=== PATIENT | male | born 1990 | race Caucasian/White ===

== ENCOUNTER 2018-11-04 10:37 | Emergency (ER) | payer OTHER ==
[2018-11-04 12:11] VITALS: BP 126/74; PULSE 105; TEMP 98; BMI 27.3
--- NOTE | 2018-11-04 13:22 | PDOC ---
History of Present Illness - General Chief Complaint: Substance Abuse Stated Complaint: HEADACHES Time Seen by Provider: 11/04/18 12:38 Past History - Past Medical History Allergies/Adverse Reactions: Allergies Allergy/AdvReac Type Severity Reaction Status Date / Time No Known Allergies Allergy Verified 11/04/18 12:12 Home Medications: Ambulatory Orders No Home Medications 0 dose .ROUTE UTDICT 05/30/13 Metoclopramide HCl [Reglan] 10 mg GT Q8H #12 tablet 08/07/15 Anemia: No Asthma: No Cancer: No Cardiac Disorders: No CVA: No COPD: No CHF: No Dementia: No Diabetes: No GI Disorders: No Disorders: No HTN: No Hypercholesterolemia: No Liver Disease: No Seizures: No Thyroid Disease: No - Surgical History Abdominal Surgery: No Appendectomy: No Cardiac Surgery: No Cholecystectomy: No Lung Surgery: No Neurologic Surgery: No Orthopedic Surgery: Yes (RIGHT KNEE FRACTURE 09/2006, ORIF,FOLLOWED BY REMOVAL OF HARDWARE, FOLLOWED) - Immunization History Immunization Up to Date: No - Suicide/Smoking/Psychosocial Hx Smoking History: Never smoked Have you smoked in the past 12 months: No Information on smoking cessation initiated: No Hx Alcohol Use: No Drug/Substance Use Hx: No Substance Use Type: Alcohol Hx Substance Use Treatment: No *Physical Exam - Vital Signs Last Vital Signs Temp Pulse Resp BP Pulse Ox 98.0 F 105 H 18 126/74 96 11/04/18 12:06 11/04/18 12:06 11/04/18 12:06 11/04/18 12:06 11/04/18 12:06 Medical Decision Making - Medical Decision Making 11/04/18 13:22 patient not in room or waiting area. left food in the fast track. patient was not evaluated byt his provider 11/04/18 14:17 patient left the waiting area many times . patient at this left point eloped prior to my evaluation *DC/Admit/Observation/Transfer Diagnosis at time of Disposition: Substance abuse - Referrals - Patient Instructions - Post Discharge Activity
== END 2018-11-04 14:25 | disposition left against medical advice (07) ==
LOC: JERFT 10:37
DX: Z53.21 Procedure and treatment not carried out due to patient leaving prior to being seen by health care provider (principal)
CPT/HCPCS: 99281-25

== ENCOUNTER 2018-11-08 17:00 | Inpatient (IN) | payer OTHER ==
[2018-11-08 20:05] VITALS: BMI 30.7
--- NOTE | 2018-11-08 21:56 | HP ---
COWS - Scale Resting Pulse: 0= [place] 80 or Below Sweatin= No chills or Flushing Restless Observation: 5= Unable to Sit Still Pupil Size: 0= Normal to Room Light Bone or Joint Aches: 4=Acute Joint/Muscle Pain Runny Nose/ Eye Tearin= Nasal Congestion GI Upset > 30mins: 0= None Tremor Observation: 0= None Yawning Observation: 1= 1-2x During Session Anxiety or Irritability: 2=Irritable/Anxious Goose Flesh Skin: 0=Smooth Skin COWS Score: 13 CIWA Score - Admission Criteria [facility] Guidelines: Admission for Medically Managed Detox: Requires at least one of the followin. CIWA greater than 12 2. Seizures within the past 24 hours 3. Delirium tremens within the past 24 hours 4. Hallucinations within the past 24 hours 5. Acute intervention needed for co occurring medical disorder 6. Acute intervention needed for co occurring psychiatric disorder 7. Severe withdrawal that cannot be handled at a lower level of care (continued vomiting, continued diarrhea, abnormal vital signs) requiring intravenous medication and/or fluids 8. Admission ROS [facility] Chief Complaint: C/O WORSENING WITHDRAWAL SX'S Allergies/Adverse Reactions: Allergies Allergy/AdvReac Type Severity Reaction Status Date / Time No Known Allergies Allergy Verified 11/08/18 19:52 History of Present Illness: 28 Y.O. MALE WITH HX/O HEROIN AND COCAINE DEPENDENCE HERE FOR DETOX. CLIENT IS SELF REFERRED THIS IS HIS FIRST ADMISSION HERE. PRESENTS WITH C/O WORSENING WITHDRAWAL SX'S. COWS 13. LAST DETOX 1 MONTH. REPORTS RELAPSING SOON AFTER DC. HE IS AN IVDU. C/O WOUNDS TO BOTH FEET INVOLVING SKIN BREAK FROM SCRATCHING. REPORTS LONGEST CLEAN TIME 2.5 YEARS. DENIES HX/O OVERDOSE,SEIZURE D/O. DOMILCILED, EMPLOYED, DENIES LEGALS - Ebola screening Have you traveled outside of the country in the last 21 days: No (N) Have you had contact with anyone from an Ebola affected area: No Do you have a fever: No - Review of Systems Constitutional: Chills, Night Sweats, Changes in sleep EENT: reports: Nose Congestion Respiratory: reports: No Symptoms reported Cardiac: reports: No Symptoms Reported GI: reports: No Symptoms Reported : reports: No Symptoms Reported Musculoskeletal: reports: Joint Pain Integumentary: reports: Erythema (TO BLE R>L) Neuro: reports: No Symptoms reported Endocrine: reports: No Symptoms Reported Hematology: reports: No Symptoms Reported Psychiatric: reports: Orientated x3, Anxious Other Systems: Reviewed and Negative Patient History - Patient Medical History Hx Anemia: No Hx Asthma: No Hx Chronic Obstructive Pulmonary Disease (COPD): No Hx Cancer: No Hx Cardiac Disorders: No Hx Congestive Heart Failure: No Hx Hypertension: No Hx Hypercholesterolemia: No Hx Pacemaker: No HX Cerebrovascular Accident: No Hx Seizures: No Hx Dementia: No Hx Diabetes: No Hx Gastrointestinal Disorders: No Hx Liver Disease: No Hx Genitourinary Disorders: No Hx Renal Disease (ESRD): No Hx Thyroid Disease: No Hx Human Immunodeficiency Virus (HIV): No Hx Hepatitis C: No Hx Depression: No Hx Suicide Attempt: No Hx Bipolar Disorder: No Hx Schizophrenia: No - Patient Surgical History Past Surgical History: Yes Hx Neurologic Surgery: No Hx Cataract Extraction: No Hx Cardiac Surgery: No Hx Lung Surgery: No Hx Breast Surgery: No Hx Breast Biopsy: No Hx Abdominal Surgery: No Hx Appendectomy: No Hx Cholecystectomy: No Hx Genitourinary Surgery: No Hx Section: No Hx Orthopedic Surgery: Yes (RIGHT KNEE FRACTURE 09/2006, ORIF,FOLLOWED BY REMOVAL OF HARDWARE, FOLLOWED) Hx Hysterectomy: No Other Surgical History: WITH HALO PINNING,TOTAL OF SEVEN SURGERIES Anesthesia Reaction: No - PPD History Previous Implant?: Yes Documented Results: Negative w/o proof Implanted On Prior [facility] Admission?: No PPD to be Administered?: Yes - Smoking Cessation Smoking history: Never smoked Have you smoked in the past 12 months: No Hx Chewing Tobacco Use: No Initiated information on smoking cessation: No - Substance & Tx. History Hx Alcohol Use: No Hx Substance Use: Yes Substance Use Type: Cocaine, Heroin Hx Substance Use Treatment: Yes ([facility]) - Substances abused Heroin Substance route: Injection Frequency: Daily Amount used: 6-10 BAGS Age of first use: 28 Date of last use: 11/08/18 Other Other (specify): PERCOCET Substance route: Oral Frequency: 1-3 times last 30 days Amount used: 3/30MG Age of first use: 16 Date of last use: 11/01/18 Family Disease History - Family Disease History Family History: Denies Admission Physical Exam BHS - Vital Signs Vital Signs: Vital Signs - 24 hr 11/08/18 19:56 Temperature 98.2 F Pulse Rate 78 Respiratory 18 Rate Blood Pressure 128/71 - Physical General Appearance: Yes: Irritable, Anxious HEENTM: Yes: EOMI, Normocephalic, Normal Voice, VEL, Pharynx Normal, Nasal Congestion Respiratory: Yes: Chest Non-Tender, Lungs Clear, Normal Breath Sounds, No Respiratory Distress, No Accessory Muscle Use Neck: Yes: No masses,lesions,Nodules, Supple, Trachea in good position Breast: Yes: Breast Exam Deferred Cardiology: Yes: Regular Rhythm, S1, S2, Tachycardia Abdominal: Yes: Normal Bowel Sounds, Non Tender, Soft Genitourinary: Yes: Within Normal Limits (NO C/O) Back: Yes: Normal Inspection Musculoskeletal: Yes: full range of Motion, Gait Steady Extremities: Yes: Non-Tender, Pedal Edema (RLE), Other (TRACK LANIER) Neurological: Yes: Fully Oriented, Alert, Motor Strength 5/5 Integumentary: Yes: Dry, Warm, Erythema (RLE WOUND WITH HOT TO TOUCH W/ BLACHABLE REDNESS AND PITTING EDEMA. NEGATIVE HOMENS SIGN WILL TREAT FOR CELLULITIS) Lymphatic: Yes: Within Normal Limits - Diagnostic (1) Opioid dependence with withdrawal Current Visit: Yes Status: Acute (2) Cocaine dependence, uncomplicated Current Visit: Yes Status: Acute (3) IVDU (intravenous drug user) Current Visit: Yes Status: Acute (4) Cellulitis Current Visit: Yes Status: Acute Qualifiers: Site of cellulitis: extremity Site of cellulitis of extremity: lower extremity Laterality: right Qualified Code(s): L03.115 - Cellulitis of right lower limb (5) Excoriation (skin-picking) disorder Current Visit: Yes Status: Acute Cleared for Admission [facility] - Detox or Rehab [facility] Level of Care: Medically Managed Detox Regimen/Protocol: Methadone Claeared for Rehab Admission: No Breathalyzer - Breathalyzer Breathalyzer: 0 Urine Drug Screen - Test Device Lot number: [id number] Expiration date: 07/15/20 - Control Is test valid?: Yes - Results Drug screen NEGATIVE: No Urine drug screen results: JEWELL-Cocaine, FEN-Fentanyl, MOP-Opiates Inpatient Rehab Admission - Rehab Decision to Admit Inpatient rehab admission?: No
[2018-11-08] MEDS ORDERED: hydrOXYzine PAMOATE 25 MG CAPSULE (FP) PO PRN (22:04)
[2018-11-08] MEDS ORDERED: ACETAMINOPHEN 325 MG TABLET (FP) PO PRN ×2 (22:04)
[2018-11-08] MEDS ORDERED: ONDANSETRON *ODT* 4 MG TABLET SL PRN (22:04)
[2018-11-08] MEDS ORDERED: METHOCARBAMOL 500 MG TABLET PO PRN (22:04)
[2018-11-08] MEDS ORDERED: cloNIDine HCL 0.1 MG TABLET PO PRN (22:04)
[2018-11-08] MEDS ORDERED: guaiFENesin 200 MG/10 ML 10 ML UNIT-DOSE CUPS PO PRN (22:04)
[2018-11-08] MEDS ORDERED: MAG HYDROX/AL HYDROX/SIMETH 30 ML UNIT-DOSE CUP PO PRN (22:04)
[2018-11-08] MEDS ORDERED: DICYCLOMINE HCL 10 MG CAPSULE PO PRN (22:04)
[2018-11-08] MEDS ORDERED: BISMUTH SUBSALICYLATE 524 MG/30 ML UD PO PRN (22:04)
[2018-11-08] MEDS ORDERED: P-EPHED 60MG/TRIPROLIDI 2.5MG TABLET PO PRN (22:04)
[2018-11-08] MEDS ORDERED: NALOXONE HCL 0.4 MG/ML VIAL IVPUSH PRN (22:04)
[2018-11-08] MEDS ORDERED: MENTHOL/PHENOL 1 EACH UD MM PRN (22:04)
[2018-11-08] MEDS ORDERED: MAGNESIUM HYDROX 2400MG/30ML ORAL SUSPENSION 30 ML CUP PO PRN (22:04)
[2018-11-08] MEDS ORDERED: MAGNESIUM CITRATE 300 ML BOTTLE PO PRN (22:04)
[2018-11-08] MEDS ORDERED: METHADONE HCL 10 MG TABLET (FOR DETOX USE ONLY) PO ONE (23:00)
[2018-11-09] MEDS: CEPHALEXIN MONOHYDRATE 500 MG CAPSULE (UD) PO SCH ×5 (00:05→23:09)
[2018-11-09] MEDS ORDERED: HYDROCORTISONE 1% TOPICAL CREAM 30 GM TUBE TP PRN (04:13)
[2018-11-09] MEDS: hydrOXYzine PAMOATE 25 MG CAPSULE (FP) PO PRN ×2 (06:28→22:40)
--- NOTE | 2018-11-09 09:15 | PN ---
BHS CIWA - CIWA Score Nausea/Vomitin Muscle Tremors: 2 Anxiety: 2 Agitation: 2 Paroxysmal Sweats: 1-Minimal Palms Moist Orientation: 0-Oriented Tacttile Disturbances: 1-Very Mild Itch/Numbness Auditory Disturbances: 1-Very Mild Visual Disturbances: 0-None Headache: 2-Mild CIWA-Ar Total Score: 13 BHS Progress Note (SOAP) Subjective: alert,irritable,anxious,interrupted sleep,tremor,interrupted sleep Objective: 11/09/18 09:14 Vital Signs Temperature 97.3 F L 11/09/18 06:00 Pulse Rate 63 11/09/18 06:00 Respiratory Rate 18 11/09/18 06:00 Blood Pressure 123/62 11/09/18 06:00 O2 Sat by Pulse Oximetry (%) Assessment: 11/09/18 09:14 withdrawal symptom Plan: continue detox
[2018-11-09] MEDS ORDERED: METHADONE HCL 10 MG TABLET (FOR DETOX USE ONLY) PO ONE (10:00)
[2018-11-09 10:02] LABS: HEMOGLOBIN 12.7 GM/dL (11.7-16.9); MCH 32.2 pg (25.7-33.7); MCHC 34.4 g/dl (32.0-35.9); MEAN CELL VOLUME 93.5 fl (80-96); MEAN PLT VOLUME 8.2 fl (7.5-11.1); RBC 3.96 M/mm3 (4.00-5.60); RDW 13.6 % (11.9-15.9); WHITE BLOOD COUNT 4.2 K/mm3 (4.0-10.0)
[2018-11-09 10:30] LABS: BILIRUBIN,TOTAL 0.4 mg/dL (0.2-1); BLOOD UREA NITROGEN 14.3 mg/dL (7-18); CALCIUM 8.3 mg/dL (8.5-10.1); TOT PROT 5.9 g/dl (6.4-8.2)
[2018-11-09 10:33] LABS: PLATELET COUNT 193 K/MM3 (134-434)
--- NOTE | 2018-11-09 10:33 | EKG ---
Test Reason : Blood Pressure : / mmHG Vent. Rate : 073 BPM Atrial Rate : 073 BPM P-R Int : 148 ms QRS Dur : 098 ms QT Int : 384 ms P-R-T Axes : 048 072 042 degrees QTc Int : 423 ms NORMAL SINUS RHYTHM NORMAL ECG WHEN COMPARED WITH ECG OF 27-FEB-2011 01:33, NO SIGNIFICANT CHANGE WAS FOUND Confirmed by Aditya Glover MD ([id number]) on 11/09/2018 10:33:03 AM Referred By: Confirmed By:Aditya Glover MD
[2018-11-09] MEDS: BACITRACIN 0.9 GM PACKET TP SCH (10:58)
[2018-11-09] MEDS: PRENATAL VITAMINS W/ FOLIC ACID TABLET (FP) PO SCH (10:58)
[2018-11-09 17:06] LABS: PH,URINE 6.5 (5.0-8.0); URINE APPEARANCE CLEAR; URINE BILIRUBIN NEGATIVE (NEGATIVE); URINE COLOR YELLOW; URINE GLUCOSE (UA) NEGATIVE (NEGATIVE); URINE KETONE NEGATIVE (NEGATIVE); URINE LEUK ESTERASE NEGATIVE (NEGATIVE); URINE NITRITE NEGATIVE (NEGATIVE); URINE PROTEIN NEGATIVE (NEGATIVE); URINE UROBILINOGEN 0.2 mg/dL (0.2-1.0)
[2018-11-09] MEDS: THIAMINE HCL 100 MG TABLET (FP) PO SCH (22:37)
[2018-11-09] MEDS: MELATONIN 5 MG TABLETS PO PRN (22:38)
[2018-11-10] MEDS: CEPHALEXIN MONOHYDRATE 500 MG CAPSULE (UD) PO SCH ×4 (06:52→23:02)
[2018-11-10] MEDS ORDERED: METHADONE HCL 10 MG TABLET (FOR DETOX USE ONLY) PO ONE (10:00)
--- NOTE | 2018-11-10 11:13 | PN ---
BHS Progress Note (SOAP) Subjective: pt states his feet are getting better on antibiotics, had infection secondary to scratching feet. O: Vital Signs - 24 hr 11/09/18 11/09/18 11/09/18 14:02 16:36 20:40 Temperature 97.1 F L 97.9 F 98.8 F Pulse Rate 78 66 75 Respiratory 18 18 18 Rate Blood Pressure 110/66 127/68 126/81 11/10/18 11/10/18 11/10/18 03:30 06:58 10:00 Temperature 97.9 F 98.6 F Pulse Rate 67 71 Respiratory 18 18 18 Rate Blood Pressure 133/76 133/78 Laboratory Tests 11/08/18 11/09/18 11/09/18 16:51 07:00 07:00 WBC 4.2 RBC 3.96 L Hgb 12.7 Hct 37.0 MCV 93.5 MCH 32.2 MCHC 34.4 RDW 13.6 Plt Count 193 MPV 8.2 Sodium 140 Potassium 4.0 Chloride 105 Carbon Dioxide 30 Anion Gap 5 L BUN 14.3 Creatinine 1.0 Est GFR (CKD-EPI)AfAm 119.02 Est GFR (CKD-EPI)NonAf 102.69 Random Glucose 97 Calcium 8.3 L Total Bilirubin 0.4 AST 130 H ALT 103 H Alkaline Phosphatase 59 Total Protein 5.9 L Albumin 3.0 L Urine Color Yellow Urine Appearance Clear Urine pH 6.5 Ur Specific [place] 1.024 Urine Protein Negative Urine Glucose (UA) Negative Urine Ketones Negative Urine Blood Negative Urine Nitrite Negative Urine Bilirubin Negative Urine Urobilinogen 0.2 Ur Leukocyte Esterase Negative RPR Titer 11/09/18 07:00 WBC RBC Hgb Hct MCV MCH MCHC RDW Plt Count MPV Sodium Potassium Chloride Carbon Dioxide Anion Gap BUN Creatinine Est GFR (CKD-EPI)AfAm Est GFR (CKD-EPI)NonAf Random Glucose Calcium Total Bilirubin AST ALT Alkaline Phosphatase Total Protein Albumin Urine Color Urine Appearance Urine pH Ur Specific [place] Urine Protein Urine Glucose (UA) Urine Ketones Urine Blood Urine Nitrite Urine Bilirubin Urine Urobilinogen Ur Leukocyte Esterase RPR Titer Nonreactive increased liver enzymes decreased albumin/T pro a/p: opioid use disorder-continue methadone detox, f/u PCP, \ cellulitis improving on Abx and rest
[2018-11-10] MEDS: PRENATAL VITAMINS W/ FOLIC ACID TABLET (FP) PO SCH (12:26)
[2018-11-10] MEDS: BACITRACIN 0.9 GM PACKET TP SCH (12:26)
[2018-11-10] MEDS: MELATONIN 5 MG TABLETS PO PRN (22:08)
[2018-11-10] MEDS: THIAMINE HCL 100 MG TABLET (FP) PO SCH (22:08)
[2018-11-10] MEDS: hydrOXYzine PAMOATE 25 MG CAPSULE (FP) PO PRN (22:08)
[2018-11-10] MEDS: IBUPROFEN 400 MG TABLET (FP) PO PRN (23:01)
[2018-11-11] MEDS: CEPHALEXIN MONOHYDRATE 500 MG CAPSULE (UD) PO SCH ×4 (06:25→23:44)
--- NOTE | 2018-11-11 09:54 | PN ---
BHS COWS - Scale Resting Pulse: 0= [place] 80 or Below Sweatin= Chills/Flushing Restless Observation: 1= Difficult to Sit Still Pupil Size: 1= Pupils >than Normal Bone or Joint Aches: 2= Severe Diffuse Aches Runny Nose/ Eye Tearin= Nasal Congestion GI Upset > 30mins: 1= Stomach Cramp Tremor Observation of Outstretched Hands: 2= Slight Tremor Visible Yawning Observation: 1= 1-2x During Session Anxiety or Irritability: 1=Feels Anxious/Irritable Goose Flesh Skin: 0=Smooth Skin COWS Score: 11 BHS Progress Note (SOAP) Subjective: alert,irritable,anxious,interrupted sleep,pain in the body and back Objective: 11/11/18 09:53 Vital Signs Temperature 98.1 F 11/11/18 09:08 Pulse Rate 61 11/11/18 09:08 Respiratory Rate 18 11/11/18 09:08 Blood Pressure 124/63 11/11/18 09:08 O2 Sat by Pulse Oximetry (%) Assessment: 11/11/18 09:53 withdrawal symptom Plan: continue detox
[2018-11-11] MEDS ORDERED: METHADONE HCL 10 MG TABLET (FOR DETOX USE ONLY) PO ONE (10:00)
[2018-11-11] MEDS: BACITRACIN 0.9 GM PACKET TP SCH ×2 (11:00→11:28)
[2018-11-11] MEDS: PRENATAL VITAMINS W/ FOLIC ACID TABLET (FP) PO SCH (11:27)
[2018-11-11] MEDS: THIAMINE HCL 100 MG TABLET (FP) PO SCH (22:08)
[2018-11-11] MEDS: MELATONIN 5 MG TABLETS PO PRN (23:42)
[2018-11-11] MEDS: hydrOXYzine PAMOATE 25 MG CAPSULE (FP) PO PRN (23:47)
[2018-11-11] MEDS: IBUPROFEN 400 MG TABLET (FP) PO PRN (23:47)
[2018-11-12] MEDS ORDERED: METHADONE HCL 5 MG TABLET (FOR DETOX USE ONLY) PO ONE (06:00)
[2018-11-12] MEDS: CEPHALEXIN MONOHYDRATE 500 MG CAPSULE (UD) PO SCH (07:47)
--- NOTE | 2018-11-12 08:30 | DS ---
[facility] Detox Discharge Summary Admission Date: 11/08/18 Discharge Date: 11/12/18 - History Present History: Cocaine Dependence, Opioid Dependence Additional Comments: Vital Signs Temperature 99.0 F 11/12/18 09:11 Pulse Rate 91 H 11/12/18 09:11 Respiratory Rate 18 11/12/18 09:11 Blood Pressure 149/90 11/12/18 09:11 O2 Sat by Pulse Oximetry (%) Laboratory Last Values WBC 4.2 K/mm3 (4.0-10.0) 11/09/18 07:00 RBC 3.96 M/mm3 (4.00-5.60) L 11/09/18 07:00 Hgb 12.7 GM/dL (11.7-16.9) 11/09/18 07:00 Hct 37.0 % (35.4-49) 11/09/18 07:00 MCV 93.5 fl (80-96) 11/09/18 07:00 MCH 32.2 pg (25.7-33.7) 11/09/18 07:00 MCHC 34.4 g/dl (32.0-35.9) 11/09/18 07:00 RDW 13.6 % (11.9-15.9) 11/09/18 07:00 Plt Count 193 K/MM3 (134-434) 11/09/18 07:00 MPV 8.2 fl (7.5-11.1) 11/09/18 07:00 Sodium 140 mmol/L (136-145) 11/09/18 07:00 Potassium 4.0 mmol/L (3.5-5.1) 11/09/18 07:00 Chloride 105 mmol/L (98-107) 11/09/18 07:00 Carbon Dioxide 30 mmol/L (21-32) 11/09/18 07:00 Anion Gap 5 MMOL/L (8-16) L 11/09/18 07:00 BUN 14.3 mg/dL (7-18) 11/09/18 07:00 Creatinine 1.0 mg/dL (0.55-1.3) 11/09/18 07:00 Est GFR (CKD-EPI)AfAm 119.02 11/09/18 07:00 Est GFR (CKD-EPI)NonAf 102.69 11/09/18 07:00 Random Glucose 97 mg/dL (74-106) 11/09/18 07:00 Calcium 8.3 mg/dL (8.5-10.1) L 11/09/18 07:00 Total Bilirubin 0.4 mg/dL (0.2-1) 11/09/18 07:00 AST 130 U/L (15-37) H 11/09/18 07:00 ALT 103 U/L (13-61) H 11/09/18 07:00 Alkaline Phosphatase 59 U/L (45-117) 11/09/18 07:00 Total Protein 5.9 g/dl (6.4-8.2) L 11/09/18 07:00 Albumin 3.0 g/dl (3.4-5.0) L 11/09/18 07:00 Urine Color Yellow 11/08/18 16:51 Urine Appearance Clear 11/08/18 16:51 Urine pH 6.5 (5.0-8.0) 11/08/18 16:51 Ur Specific [place] 1.024 (1.010-1.035) 11/08/18 16:51 Urine Protein Negative (NEGATIVE) 11/08/18 16:51 Urine Glucose (UA) Negative (NEGATIVE) 11/08/18 16:51 Urine Ketones Negative (NEGATIVE) 11/08/18 16:51 Urine Blood Negative (NEGATIVE) 11/08/18 16:51 Urine Nitrite Negative (NEGATIVE) 11/08/18 16:51 Urine Bilirubin Negative (NEGATIVE) 11/08/18 16:51 Urine Urobilinogen 0.2 mg/dL (0.2-1.0) 11/08/18 16:51 Ur Leukocyte Esterase Negative (NEGATIVE) 11/08/18 16:51 RPR Titer Nonreactive (NONREACTIVE) 11/09/18 07:00 - Physical Exam Results Vital Signs: Vital Signs Temperature 97.5 F L 11/12/18 06:20 Pulse Rate 56 L 11/12/18 06:20 Respiratory Rate 16 11/12/18 06:20 Blood Pressure 131/69 11/12/18 06:20 O2 Sat by Pulse Oximetry (%) - Treatment Hospital Course: Detox Protocol Followed, Detoxed Safely, Responded well, Discharged Condition Good, Rehab Referral Accepted Patient has Accepted a Rehab Referral to: Follow up at [facility] - Medication Discharge Medications: Ambulatory Orders NK [No Known Home Medication] 11/08/18 - Diagnosis (1) Cocaine dependence, uncomplicated Current Visit: Yes Status: Acute (2) IVDU (intravenous drug user) Current Visit: Yes Status: Acute (3) Opioid dependence with withdrawal Current Visit: Yes Status: Acute - AMA Did Patient Leave Against Medical Advice: No
[2018-11-12 09:12] VITALS: BP 149/90; PULSE 91; TEMP 99
== END 2018-11-12 09:30 | disposition home or self-care (01) | DRG 773 ==
LOC: YASAS 17:00 → Y6N 22:22
PROVIDERS: ADMIT Surgery; ATTEND Surgery
PROC: HZ2ZZZZ Detoxification Services for Substance Abuse Treatment (ICD-10-PCS; principal; 2018-11-08)
DX: F11.23 Opioid dependence with withdrawal (principal); F14.20 Cocaine dependence, uncomplicated; L03.115 Cellulitis of right lower limb; F42.4 Excoriation (skin-picking) disorder; R94.5 Abnormal results of liver function studies
CPT/HCPCS: 36415; 80053; 81003; 85027; 86593; 93005; 93010

== ENCOUNTER 2020-11-04 17:42 | Emergency (ER) | payer OTHER ==
[2020-11-04 17:59] VITALS: BP 135/80; PULSE 70; TEMP 97.9; BMI 29.2
[2020-11-04] MEDS ORDERED: BUPRENORPHINE/NALOXONE 8 MG/2 MG FILM (DETOX) SL ONE (18:10)
[2020-11-04] MEDS ORDERED: BUPRENORPHINE/NALOXONE 8 MG/2 MG FILM PACKET ONE (18:18)
[2020-11-04] MEDS ORDERED: BUPRENORPHINE HCL 2 MG TAB.SUBL SL ONE (18:30)
[2020-11-04] MEDS ORDERED: BUPRENORPHINE HCL 8 MG TAB.SUBL SL ONE (18:45)
== END 2020-11-04 18:54 | disposition home or self-care (01) ==
LOC: JER 17:42
DX: F11.23 Opioid dependence with withdrawal (principal)
CPT/HCPCS: 99283-25

== ENCOUNTER 2020-11-05 09:43 | Emergency (ER) | payer OTHER ==
[2020-11-05 09:57] VITALS: BP 138/87; PULSE 74; TEMP 98.1; BMI 29.2
[2020-11-05] MEDS ORDERED: BUPRENORPHINE/NALOXONE 8 MG/2 MG FILM (DETOX) SL ONE (09:59)
[2020-11-05] MEDS ORDERED: BUPRENORPHINE/NALOXONE 8 MG/2 MG FILM PACKET ONE (10:21)
[2020-11-05] MEDS ORDERED: BUPRENORPHINE HCL 8 MG TAB.SUBL SL ONE (10:32)
== END 2020-11-05 11:00 | disposition home or self-care (01) ==
LOC: JER 09:43
DX: F11.23 Opioid dependence with withdrawal (principal)
CPT/HCPCS: 99283-25

== ENCOUNTER 2022-05-06 19:09 | Emergency (ER) | payer OTHER ==
[2022-05-06 19:42] VITALS: BP 125/86; PULSE 89; RESP 18; TEMP 98.7; BMI 30.7
[2022-05-06 20:10] LABS: HEMOGLOBIN 16.4 G/dL (11.7-16.9); MCH 32.6 pg (25.7-33.7); MCHC 34.8 g/dl (32.0-35.9); MEAN CELL VOLUME 93.9 fl (80-96); MEAN PLT VOLUME 8.4 fl (7.5-11.1); PLATELET COUNT 223.3 10^3/uL (134-434); RBC 5.01 10^6/uL (4.00-5.60); RDW 14.2 % (11.9-15.9); WHITE BLOOD COUNT 12.9 10^3/uL (4.0-10.8)
[2022-05-06 20:26] LABS: ALBUMIN 4.5 g/dl (3.4-5.0); BILIRUBIN,TOTAL 0.8 mg/dl (0.2-1); CALCIUM 9.1 mg/dl (8.5-10); TOT PROT 7.2 g/dl (6.4-8.2)
[2022-05-06] MEDS ORDERED: ONDANSETRON *ODT* 4 MG TABLET ONE (20:41)
[2022-05-06] MEDS: ONDANSETRON *ODT* 4 MG TABLET SL ONE ×2 (20:42→21:22)
[2022-05-06] MEDS ORDERED: ONDANSETRON 4 MG/2 ML VIAL IVPB ONE ×2 (20:49→20:57)
[2022-05-06] MEDS ORDERED: ONDANSETRON 4 MG/2 ML VIAL ONE (21:14)
[2022-05-06] MEDS ORDERED: ACETAMINOPHEN 1000 MG/100 ML BAG IVPB ONE (21:23)
[2022-05-06] MEDS ORDERED: ACETAMINOPHEN INJECTION 100 ML IVPB ONE (21:24)
[2022-05-06] MEDS ORDERED: SODIUM CHLORIDE 1,000 ML IV ONE (21:35)
== END 2022-05-06 22:37 | disposition home or self-care (01) ==
LOC: FER 19:09
PROC: 3E0333Z Introduction of Anti-inflammatory into Peripheral Vein, Percutaneous Approach (ICD-10-PCS; principal; 2022-05-06)
PROC: 3E033GC Introduction of Other Therapeutic Substance into Peripheral Vein, Percutaneous Approach (ICD-10-PCS; 2022-05-06)
PROC: 3E0337Z Introduction of Electrolytic and Water Balance Substance into Peripheral Vein, Percutaneous Approach (ICD-10-PCS; 2022-05-06)
DX: R11.2 Nausea with vomiting, unspecified (principal); R19.7 Diarrhea, unspecified; R10.9 Unspecified abdominal pain
CPT/HCPCS: 36415; 74019-TC-FY; 74177-TC; 80053; 85027; 99285-25; C9803-CS; Q0162; Q9967; U0003; U0005